=== PATIENT | male | born 1940 | race Caucasian/White ===

== ENCOUNTER 2022-10-11 17:51 | Emergency (ER) | payer OTHER, MEDICARE ==
[~2022-10-11] VITALS: Ht 182.9 cm; Wt 90.0 kg
[2022-10-11 18:50] LABS: BASOPHILS # (AUTO) 0.1 X10'3 (0-0.2); EOSINOPHILS # (AUTO) 0.3 X10'3 (0-0.9); EOSINOPHILS % (AUTO) 5.1 % (0-6); HEMATOCRIT 33.7 % (42.0-52.0); HEMOGLOBIN 10.8 g/dl (14.0-17.9); LYMPHOCYTES # (AUTO) 1.5 X10'3 (1.1-4.8); LYMPHOCYTES % (AUTO) 22.9 % (21-51); MEAN CORPUSCULAR HEMOGLOBIN 22.9 PG (27.0-31.0); MEAN CORPUSCULAR HGB CONC 32.2 g/dL (33.0-36.5); MEAN CORPUSCULAR VOLUME 71.3 FL (78-98); MEAN PLATELET VOLUME 7.4 FL (7.4-10.4); MONOCYTES # (AUTO) 0.7 X10'3 (0-0.9); MONOCYTES % (AUTO) 9.8 % (2-12); NEUTROPHILS # (AUTO) 4.1 X10'3 (1.8-7.7); NEUTROPHILS % (AUTO) 61.2 % (42-75); PLATELET COUNT 138 X10'3 (140-440); RED BLOOD COUNT 4.73 X10'6 (4.70-6.10); WHITE BLOOD COUNT 6.7 X10'3 (4.5-11.0)
[2022-10-11 19:03] LABS: ALANINE AMINOTRANSFERASE 17 U/L (12-78); ALBUMIN 3.6 G/DL (3.4-5.0); ALBUMIN/GLOBULIN RATIO 1.1 (1.1-1.5); ALKALINE PHOSPHATASE 116 IU/L (46-116); ANION GAP 5 (8-16); ASPARTATE AMINO TRANSFERASE 16 U/L (10-37); BILIRUBIN,TOTAL 0.5 MG/DL (0.1-1.0); BLOOD UREA NITROGEN 24 MG/DL (7-18); BUN/CREATININE RATIO 17.1 (5.4-32.0); CHLORIDE 103 MMOL/L (99-107); GLUCOSE 94 MG/DL (70-104); POTASSIUM 3.6 MMOL/L (3.5-5.1); SODIUM 138 MMOL/L (135-145); TOTAL CARBON DIOXIDE 29.6 MMOL/L (24-32); TOTAL PROTEIN 6.8 G/DL (6.4-8.2); eGFR 48 ML/MIN
[2022-10-11 19:16] LABS: ETHANOL < 0.010 GM/DL (0.0-0.010)
[2022-10-11 21:42] LABS: CLARITY,URINE CLEAR (Clear); COLOR,URINE YELLOW (Yellow); GLUCOSE, URINE NEGATIVE (Neg); KETONES,URINE NEGATIVE (Neg); LEUKOCYTE ESTERASE ,URINE NEGATIVE (Neg); NITRITES, URINE NEGATIVE (Neg); OCCULT BLOOD,URINE TRACE-INTACT (Neg); PH,URINE 5.5 (4.8-8.0); PROTEIN,URINE NEGATIVE (Neg); UROBILINOGEN,URINE 0.2 E.U/dL (0.2-1.0)
[2022-10-11 21:47] LABS: UA COLLECTION TYPE CLN CATCH MIDSTREAM
[2022-10-11 21:52] LABS: URINE AMPHETAMINE SCREEN NEGATIVE (Neg); URINE BARBITUATE SCREEN NEGATIVE (Neg); URINE BENZODIAZEPINES SCREEN NEGATIVE (Neg); URINE CANNABINOID SCREEN POSITIVE (Neg); URINE COCAINE SCREEN NEGATIVE (Neg); URINE METHADONE SCREEN NEGATIVE (Neg); URINE OPIATE SCREEN NEGATIVE (Neg); URINE PHENCYCLIDINE SCREEN NEGATIVE (Neg)
[2022-10-11 21:55] LABS: MUCUS STRANDS MANY /LPF (Neg); SQUAMOUS EPITHELIAL CELL,UR FEW /LPF (FEW)
[2022-10-11] MEDS ORDERED: ibuprofen tablet 400 MG TABLET PO ONE (21:55)
[2022-10-11 21:56] LABS: HYALINE CASTS >30 /LPF (NEGATIVE)
[2022-10-11 21:57] LABS: BACTERIA,URINE NONE SEEN /HPF (Neg); WBC,URINE 0-4 /HPF (0-4)
[2022-10-12] MEDS ORDERED: TRAZ-256 PO (01:14)
[2022-10-12] MEDS ORDERED: MELA3TAB39 PO (01:14)
[2022-10-12] MEDS ORDERED: LEVO100T PO (01:14)
[2022-10-12] MEDS ORDERED: MEMANTINE 5 MG PO (01:14)
[2022-10-12] MEDS ORDERED: APIX5TAB3 PO (01:14)
[2022-10-12] MEDS ORDERED: ATOR40TA7 PO (01:14)
[2022-10-12] MEDS ORDERED: DONE10TA19 PO (01:14)
[2022-10-12] MEDS ORDERED: METO-395 PO (01:14)
[2022-10-12] MEDS ORDERED: OMEP40CA21 PO (01:14)
[2022-10-12] MEDS ORDERED: FURO-150 PO (01:25)
[2022-10-12] MEDS ORDERED: KCL 20 MEQ/15 ML PO (01:25)
--- NOTE | 2022-10-12 06:51 | NUR ---
Received Pt in bed sleeping w/o distress at this time.
--- NOTE | 2022-10-12 08:47 | NUR ---
Pt. required minimal assistance to the bathroom by this health underwriter r/t generalized weakness.
[2022-10-12] MEDS ORDERED: ondansetron 4mg rapidly disintigrating tab PO ONE (09:30)
[2022-10-12] MEDS: apixaban 5mg tablet PO SCH ×2 (09:47→19:52)
[2022-10-12] MEDS: pantoprazole 40mg Tablet.DR PO SCH (09:47)
[2022-10-12] MEDS: memantine 5mg tablet PO SCH ×2 (09:47→19:52)
[2022-10-12] MEDS: levoTHYROXINE 100mcg tablet PO SCH (09:47)
[2022-10-12] MEDS: donepezil 5mg tablet PO SCH (09:47)
[2022-10-12] MEDS: metoprolol succinate 25mg (24-HOUR) SR. Tablet PO SCH ×2 (09:48→19:56)
--- NOTE | 2022-10-12 10:03 | NUR ---
Pt repeats questions and is confused about how he got here. Pleasant and listens to instruction.
--- NOTE | 2022-10-12 10:08 | NUR ---
Pt took AM meds w/o issue. Pt received Zofran for nausea as well, with good results.
--- NOTE | 2022-10-12 11:02 | NUR ---
Pt has been talking to [facility] clinician.
--- NOTE | 2022-10-12 13:07 | NUR ---
Per [facility], pt. will not be placed on a mental health hold at this time. He has been referred to be seen by the hospital social sciences chair r/t a diagnosis of dementia. Pt. currently lives in a care facility, but may need a higher level of care.
--- NOTE | 2022-10-12 14:18 | NUR ---
This film writer telephoned pt's son for him as he was unable to do so himself r/t confusion. Pt. is on the telephone with his son at this time, he states in a disoriented manner, "I've been arrested!" This film writer reassured pt. that he has not been arrested and he reported some understaning. Will continue to monitor closely.
--- NOTE | 2022-10-12 15:53 | NUR ---
Met w/ pt at the bedside. He is alert and oriented and tells me he's kind of embarassed about all this attention. He confirms he lives at [facility] and is normally independent w/ ADLs. He has been going to the [facility] but he says its become so difficult he's finding another PMD. His son Carlos (JOYCELYN) is going to get him set up w/ his physican but isn't sure of their name. I gave him my business card and told him to call me anytime if he needs some resources or help.
--- NOTE | 2022-10-12 17:35 | NUR ---
Spoke with Pt's son who stated he will be at [facility] to [place] [phone] on 10/13/22, tomorrow. Son seemed supportive and pleasant in conversation.
[2022-10-12] MEDS ORDERED: traZODone 50mg tablet PO SCH (21:00)
[2022-10-12] MEDS ORDERED: Melatonin 3mg tablet PO SCH (21:00)
[2022-10-12] MEDS ORDERED: Melatonin 3mg tablet PO ONE (21:00)
[2022-10-13 05:39] VITALS: BP 127/64
--- NOTE | 2022-10-13 06:30 | NUR ---
Pt. asleep, on his back, no s/sx of distress.
--- NOTE | 2022-10-13 07:30 | NUR ---
Pt. asleep, on his back, no s/sx of distress.
[2022-10-13] MEDS: donepezil 5mg tablet PO SCH (08:27)
[2022-10-13] MEDS: memantine 5mg tablet PO SCH (08:27)
[2022-10-13] MEDS: pantoprazole 40mg Tablet.DR PO SCH (08:27)
[2022-10-13] MEDS: levoTHYROXINE 100mcg tablet PO SCH (08:27)
[2022-10-13] MEDS: apixaban 5mg tablet PO SCH (08:27)
--- NOTE | 2022-10-13 08:30 | NUR ---
Pt. awake, refused breakfast, took medications without hesitancy, waiting on pharmacy to bring dose of BP med.
[2022-10-13] MEDS ORDERED: metoprolol succinate 25mg (24-HOUR) SR. Tablet PO SCH (08:36)
--- NOTE | 2022-10-13 09:15 | NUR ---
Pt. DELGADILLO with his son, all paperwork signed, and belongings returned to pt.
== END 2022-10-13 09:42 ==
LOC: ER 17:51
DX: F32.A Depression, unspecified (principal); Z20.822 Contact with and (suspected) exposure to COVID-19; R45.851 Suicidal ideations; I10 Essential (primary) hypertension
CPT/HCPCS: 36415; 70450; 80053; 80305; 80320; 81001; 84443; 85025; 87811; 99285

== ENCOUNTER 2023-04-18 19:38 | Emergency (ER) | payer OTHER, MEDICARE ==
[~2023-04-18] VITALS: Ht 188 cm; Wt 87.0 kg
[~2023-04-18 19:38] MED LIST: APIX5TAB3 PO; ATOR40TA7 PO; DONE10TA19 PO; FURO-150 PO; KCL 20 MEQ/15 ML PO; LEVO100T PO; MELA3TAB39 PO; MEMANTINE 5 MG PO; METO-395 PO; OMEP40CA21 PO; TRAZ-256 PO
[2023-04-18 20:05] LABS: BASOPHILS # (AUTO) 0.1 X10'3 (0-0.2); BASOPHILS % (AUTO) 1.1 % (0-1); EOSINOPHILS # (AUTO) 0.3 X10'3 (0-0.9); EOSINOPHILS % (AUTO) 5.6 % (0-6); HEMATOCRIT 32.5 % (42.0-52.0); HEMOGLOBIN 10.6 g/dl (14.0-17.9); LYMPHOCYTES # (AUTO) 1.5 X10'3 (1.1-4.8); LYMPHOCYTES % (AUTO) 28.9 % (21-51); MEAN CORPUSCULAR HEMOGLOBIN 24.6 PG (27.0-31.0); MEAN CORPUSCULAR HGB CONC 32.5 g/dL (33.0-36.5); MEAN CORPUSCULAR VOLUME 75.7 FL (78-98); MEAN PLATELET VOLUME 7.7 FL (7.4-10.4); MONOCYTES # (AUTO) 0.5 X10'3 (0-0.9); MONOCYTES % (AUTO) 10.4 % (2-12); NEUTROPHILS # (AUTO) 2.8 X10'3 (1.8-7.7); PLATELET COUNT 97 X10'3 (140-440); RED CELL DISTRIBUTION WIDTH 19.1 % (11.5-14.5); WHITE BLOOD COUNT 5.1 X10'3 (4.5-11.0)
[2023-04-18 20:18] LABS: ALANINE AMINOTRANSFERASE 15 U/L (12-78); ALKALINE PHOSPHATASE 88 IU/L (46-116); ANION GAP 9 (8-16); ASPARTATE AMINO TRANSFERASE 13 U/L (10-37); BILIRUBIN,TOTAL 0.2 MG/DL (0.1-1.0); BLOOD UREA NITROGEN 27 MG/DL (7-18); BUN/CREATININE RATIO 19.7 (10.0-20.0); CALCIUM 8.7 MG/DL (8.5-10.1); CHLORIDE 104 MMOL/L (99-107); CREATININE 1.37 MG/DL (0.60-1.10); GLUCOSE 119 MG/DL (70-104); SODIUM 144 MMOL/L (135-145); TOTAL CARBON DIOXIDE 31.4 MMOL/L (24-32); TOTAL PROTEIN 6.1 G/DL (6.4-8.2); eGFR 50 ML/MIN
[2023-04-18 20:24] LABS: PRO BRAIN NATRIURETIC PEPTIDE 296 PG/ML (0-450)
[2023-04-18 21:00] VITALS: BP 125/57; PULSE 56; RESP 14; TEMP 98.3; O2SAT 94
== END 2023-04-19 02:31 | disposition left against medical advice (07) ==
LOC: ER 19:38
DX: R07.89 Other chest pain (principal); Z53.21 Procedure and treatment not carried out due to patient leaving prior to being seen by health care provider
CPT/HCPCS: 36415; 71045; 80053; 83880; 84484; 85025; 93005; 99281

== ENCOUNTER 2023-05-25 12:01 | Emergency (ER) | payer OTHER, MEDICARE ==
[~2023-05-25] VITALS: Ht 185.4 cm; Wt 79.5 kg
[2023-05-25 12:02] VITALS: TEMP 98.8
[2023-05-25] MEDS ORDERED: HYDROcodone/acetaminophen 10/325mg tab PO STA (12:06)
--- NOTE | 2023-05-25 14:18 | NUR ---
PT. BROUGHT TO [facility] VIA W/C, OFFERED TO BE PLACED IN [facility], REFUSED D/T INCREASED PAIN TO RUE WITH MOVEMENT. SON @ BEDSIDE.
[2023-05-25] MEDS ORDERED: morphine 4 MG/ML inj SYRINge IV ONE ×3 (15:05→18:10)
--- NOTE | 2023-05-25 15:46 | NUR ---
pt. medicated with Morphine, transferred from [facility] to [facility] with assist of 2 techs and RN. Patient c/o pain with any movement of RUE.
[2023-05-25] MEDS ORDERED: HYDR-3972 PO (18:01)
[2023-05-25] MEDS ORDERED: HYDROcodone/acetaminophen 10/325mg tab PO ONE (18:10)
[2023-05-25 19:27] VITALS: BP 135/78; PULSE 68; RESP 20; O2SAT 95
[2023-05-25] MEDS ORDERED: HYDROcodone/acetaminophen 5mg/325mg tablet PO STA (20:14)
[2023-05-26] MEDS ORDERED: HYDR-3972 PO (09:37)
== END 2023-05-25 20:37 | disposition home or self-care (01) ==
LOC: ER 12:02
DX: S52.611A Displaced fracture of right ulna styloid process, initial encounter for closed fracture (principal); S42.301A Unspecified fracture of shaft of humerus, right arm, initial encounter for closed fracture; I10 Essential (primary) hypertension; Z79.899 Other long term (current) drug therapy; W19.XXXA Unspecified fall, initial encounter; Y93.89 Activity, other specified; Y92.89 Other specified places as the place of occurrence of the external cause; Y99.8 Other external cause status
CPT/HCPCS: 29125; 70450; 73030; 73090; 73200; 96374; 96376; 99285; J2270; A4565

== ENCOUNTER 2024-07-18 14:51 | Emergency (ER) | payer MEDICARE, OTHER ==
[~2024-07-18] VITALS: Ht 182.9 cm; Wt 74.5 kg
[~2024-07-18 14:51] MED LIST changes: +ATOR-411 PO; -ATOR40TA7 PO; +HYDR-3972 PO
[2024-07-18 15:08] VITALS: TEMP 98.2
[2024-07-18 16:48] LABS: BASOPHILS % (AUTO) 0.7 % (0-1); EOSINOPHILS # (AUTO) 0.3 X10'3 (0-0.9); EOSINOPHILS % (AUTO) 5.7 % (0-6); HEMATOCRIT 37.6 % (42.0-52.0); HEMOGLOBIN 12.7 g/dl (14.0-17.9); LYMPHOCYTES # (AUTO) 1.4 X10'3 (1.1-4.8); LYMPHOCYTES % (AUTO) 26.1 % (21-51); MEAN CORPUSCULAR HEMOGLOBIN 29.2 PG (27.0-31.0); MEAN CORPUSCULAR HGB CONC 33.7 g/dL (33.0-36.5); MEAN CORPUSCULAR VOLUME 86.6 FL (78-98); MEAN PLATELET VOLUME 6.8 FL (7.4-10.4); MONOCYTES # (AUTO) 0.4 X10'3 (0-0.9); MONOCYTES % (AUTO) 7.9 % (2-12); NEUTROPHILS # (AUTO) 3.2 X10'3 (1.8-7.7); NEUTROPHILS % (AUTO) 59.6 % (42-75); RED BLOOD COUNT 4.34 X10'6 (4.70-6.10); RED CELL DISTRIBUTION WIDTH 15.4 % (11.5-14.5); WHITE BLOOD COUNT 5.4 X10'3 (4.5-11.0)
[2024-07-18 17:07] LABS: PLATELET COUNT 92 X10'3 (140-440)
[2024-07-18 17:10] LABS: ALANINE AMINOTRANSFERASE 14 U/L (12-78); ALBUMIN 2.9 G/DL (3.4-5.0); ALBUMIN/GLOBULIN RATIO 0.9 (1.1-1.5); ALKALINE PHOSPHATASE 83 IU/L (46-116); ANION GAP 6 (8-16); ASPARTATE AMINO TRANSFERASE 12 U/L (10-37); BILIRUBIN,TOTAL 0.3 MG/DL (0.1-1.0); BLOOD UREA NITROGEN 16 MG/DL (7-18); BUN/CREATININE RATIO 15.5 (10.0-20.0); CALCIUM 8.6 MG/DL (8.5-10.1); CHLORIDE 105 MMOL/L (99-107); CREATININE 1.03 MG/DL (0.60-1.10); GLUCOSE 90 MG/DL (70-104); POTASSIUM 4.6 MMOL/L (3.5-5.1); SODIUM 144 MMOL/L (135-145); TOTAL CARBON DIOXIDE 33.1 MMOL/L (24-32); TOTAL PROTEIN 6.1 G/DL (6.4-8.2); eCRCL 55 ML/MIN; eGFR 69 ML/MIN
[2024-07-18 17:31] LABS: BILIRUBIN,URINE NEGATIVE (Neg); CLARITY,URINE CLOUDY (Clear); COLOR,URINE YELLOW (Yellow); GLUCOSE, URINE NEGATIVE (Neg); KETONES,URINE NEGATIVE (Neg); LEUKOCYTE ESTERASE ,URINE NEGATIVE (Neg); OCCULT BLOOD,URINE LARGE (Neg); PH,URINE 7.5 (4.8-8.0); PROTEIN,URINE NEGATIVE (Neg); UROBILINOGEN,URINE 0.2 E.U/dL (0.2-1.0)
[2024-07-18 17:35] LABS: NITRITES, URINE NEGATIVE (Neg); UA COLLECTION TYPE FOLEY CATH
[2024-07-18 17:37] LABS: SQUAMOUS EPITHELIAL CELL,UR FEW /LPF (FEW)
[2024-07-18 17:38] LABS: BACTERIA,URINE NONE SEEN /HPF (Neg); RBC,URINE TNTC /HPF (0-2); WBC,URINE 0-4 /HPF (0-4)
[2024-07-18 18:04] VITALS: BP 143/79; PULSE 74; RESP 16; O2SAT 95
== END 2024-07-18 18:39 | disposition home or self-care (01) ==
LOC: ER 14:51
DX: F03.90 Unspecified dementia, unspecified severity, without behavioral disturbance, psychotic disturbance, mood disturbance, and anxiety (principal); I25.10 Atherosclerotic heart disease of native coronary artery without angina pectoris; I10 Essential (primary) hypertension; F32.A Depression, unspecified; R41.0 Disorientation, unspecified; Z95.1 Presence of aortocoronary bypass graft; Z98.890 Other specified postprocedural states; Z86.73 Personal history of transient ischemic attack (TIA), and cerebral infarction without residual deficits; Z79.899 Other long term (current) drug therapy
CPT/HCPCS: 36415; 70450; 71045; 80053; 81001; 84484; 85025; 99284; A4314; A4340